=== PATIENT | female | born 1975 | race Caucasian/White ===

== ENCOUNTER 2020-09-16 08:36 | Outpatient (REF) | payer BC, SELFPAY ==
--- NOTE | ~2020-09-16 | MM_ITS ---
EXAMINATION: MM SCREENING DIGITAL BREAST TOMOSYNTHESIS, BILATERAL CLINICAL INFORMATION: Screening. Asymptomatic. The lifetime risk of breast cancer based on the Tyrer-Cuzick Model is 25.9%. Additional annual screening with breast MRI may be of benefit in women with a Score of 20% or greater. COMPARISON: Mammography: 09/11/2019 and studies dating back to 06/01/2016 TECHNIQUE: Digital breast tomosynthesis is performed in both the craniocaudal and mediolateral oblique views along with computer-aided detection (CAD). Synthesized 2D images are generated from the tomosynthesis. FINDINGS: The breasts are heterogeneously dense, which may obscure small masses (ACR BI-RADS breast composition Category c). No suspicious left breast findings. About the deep lateral aspect of the right breast on craniocaudal view within the region of density there is question of some architectural distortion for which spot compression view is recommended. This may represent superimposition of fibroglandular tissue. MM/MM tomosynthesis screening BI IMPRESSION: Question region of architectural distortion lateral right breast for further evaluation as described. ASSESSMENT: BI-RADS 0: Incomplete - Need Additional Imaging Evaluation RECOMMENDATION: 1. Additional views of the right breast. 2. Targeted ultrasound if warranted after review of the additional views. 3. Radiology department staff will contact the patient for additional imaging. This patient's information was entered into a reminder system with a target due date for their next mammogram.
== END 2020-09-16 08:37 | disposition home or self-care (01) ==
LOC: HO.MAMMO 08:36
PROVIDERS: PCP Internal Medicine; Visit Provider Internal Medicine
DX: Z12.31 Encounter for screening mammogram for malignant neoplasm of breast (principal)
CPT/HCPCS: 77063; 77067

== ENCOUNTER 2020-09-20 11:58 | Outpatient (REF) | payer BC, SELFPAY ==
--- NOTE | ~2020-09-20 | US_ITS ---
EXAMINATION: US DIAGNOSTIC ULTRASOUND BREAST, RIGHT CLINICAL INFORMATION: Region of architectural distortion upper outer aspect of the right breast. COMPARISON: None. TECHNIQUE: Ultrasound of the breast is performed with real-time stone scale imaging and color Doppler. FINDINGS: Targeted ultrasound evaluation to the upper outer aspect of the right breast did not demonstrate any abnormal cystic or solid mass. No region of abnormal distal sound shadowing. There is large amount of dense breast parenchyma in this location. Results are provided to the patient at time of visit by the technologist. US/US breast RT limited IMPRESSION: No specific mammographic or ultrasound findings to suggest malignancy of the right breast. ASSESSMENT: BI-RADS 1: Negative RECOMMENDATION: Routine annual mammography screening due in 12 months.
--- NOTE | ~2020-09-20 | MM_ITS ---
EXAMINATION: MM DIAGNOSTIC DIGITAL BREAST TOMOSYNTHESIS, RIGHT US TARGETED BREAST, RIGHT CLINICAL INFORMATION: Asymmetric density upper outer aspect of the right breast. COMPARISON: Mammography: 09/16/2020 and studies dating back to 06/01/2016. TECHNIQUE: Digital breast tomosynthesis is performed. 2D images are generated from the tomosynthesis. The following views are obtained: Spot compression craniocaudal view, 90 degree mediolateral view, and right middle lateral oblique view. Targeted right breast ultrasound. FINDINGS: The breasts are heterogeneously dense, which may obscure small masses (ACR BI-RADS breast composition Category c). Supplementary views compress out the region to have a similar appearance dating back to 03/02/2016 with the appearance of architectural distortion. No new abnormal dominant mass or suspicious grouping of microcalcifications. Targeted ultrasound evaluation to the upper outer aspect of the right breast did not demonstrate any abnormal cystic or solid mass. No region of abnormal distal sound shadowing. There is a large amount of dense breast parenchyma in this location. Results are provided to the patient at time of visit by the technologist. MM/MM tomosynthesis added views R IMPRESSION: No specific mammographic or ultrasound findings to suggest malignancy of the right breast. ASSESSMENT: BI-RADS 1: Negative. RECOMMENDATION: Routine annual mammography screening due in 12 months. This patient's information was entered into a reminder system with a target due date for their next mammogram.
== END 2020-09-20 11:59 | disposition home or self-care (01) ==
LOC: HO.MAMMO 11:58
PROVIDERS: Visit Provider Internal Medicine
DX: R92.8 Other abnormal and inconclusive findings on diagnostic imaging of breast (principal)
CPT/HCPCS: 76642; 77061; 77065

== ENCOUNTER → 2020-12-14 09:23 | Outpatient (BNVA) | payer BC, SELFPAY | PROVIDERS: PCP Internal Medicine; Visit Provider Advanced Practice Midwife ==

== ENCOUNTER 2020-12-27 14:11 | Outpatient (REF) | payer BC, SELFPAY ==
--- NOTE | ~2020-12-27 | US_ITS ---
EXAMINATION: PELVIC ULTRASOUND CLINICAL INFORMATION: Excessive and frequent menstruation with regular cycles COMPARISON: Previous exam July 2019 TECHNIQUE: Transabdominal and transvaginal pelvic ultrasound was performed. Transvaginal exam was performed for better visualization of the uterus and ovaries. FINDINGS: The uterus is anteverted and measures 9.1 x 3.2 x 3.4 cm in dimension. No focal uterine lesion is seen. Endometrial thickness is normal measuring 1 cm. There are nabothian cysts in the cervix. The right ovary measures 2.9 x 1.5 x 2.2 cm. There is a 1.9 x 1.1 x 1.2 cm complex right ovarian cyst with slightly thickened irregular wall. There is a 1.1 x 1.7 x 1.7 cm right paraovarian cyst. This is stable. The left ovary is seen transabdominally only and is normal-appearing. The left ovary measures 2.5 x 1.9 x 1.6 cm. There is no fluid in the pelvis. US/US pelvic and transvaginal IMPRESSION: Normal-appearing uterus. Normal thickness endometrium. New 1.9 x 1.1 x 1.2 cm complex right ovarian cyst with slightly thickened wall. Stable right paraovarian or adnexal cyst measuring 1.1 x 1.7 x 1.7 cm compared to previous exam.
== END 2020-12-27 14:12 | disposition home or self-care (01) ==
LOC: HO.US 14:11
PROVIDERS: Visit Provider Advanced Practice Midwife
DX: N92.0 Excessive and frequent menstruation with regular cycle (principal)
CPT/HCPCS: 76830; 76856

== ENCOUNTER → 2021-01-03 15:41 | Outpatient (BNVA) | payer BC, SELFPAY | PROVIDERS: PCP Internal Medicine; Visit Provider Advanced Practice Midwife ==

== ENCOUNTER 2021-01-23 08:39 | Outpatient (REF) | payer BC, SELFPAY ==
[2021-01-23 10:44] LABS: Hematocrit 41.5 % (37-47); Hemoglobin 13.4 g/dl (12.0-16.0); Mean Corpuscular HGB Conc 32.3 g/dl (31.0-35.0); Mean Corpuscular Hemoglobin 26.3 pg (27.0-33.0); Mean Corpuscular Volume 81.5 fL (80-98); Mean Platelet Volume 10.6 fL (9.4-12.3); Platelet Count 347 X10*3/uL (160-400); Red Blood Count 5.09 X10*6/uL (4.20-5.50); Red Cell Distribution Width 14.1 % (11.0-16.0); White Blood Count 8.4 X10*3/uL (4.8-10.8)
[2021-01-23 11:37] LABS: HCG Quantitative < 2 mIU/mL; TSH reflex Free T4 1.12 uIU/mL (0.32-4.0)
== END 2021-01-23 08:40 | disposition home or self-care (01) ==
LOC: HO.LAB 08:39
PROVIDERS: PCP Internal Medicine; Visit Provider Obstetrics & Gynecology
DX: N92.0 Excessive and frequent menstruation with regular cycle (principal); N83.299 Other ovarian cyst, unspecified side; N88.9 Noninflammatory disorder of cervix uteri, unspecified
CPT/HCPCS: 36415; 57500; 58100; 84443; 84702; 85027; 88305

== ENCOUNTER → 2021-02-06 11:36 | Outpatient (BNVA) | payer BC, SELFPAY | PROVIDERS: PCP Internal Medicine; Visit Provider Obstetrics & Gynecology ==

== ENCOUNTER 2021-02-07 15:46 | Outpatient (REF) | payer BC, SELFPAY ==
[2021-02-08 11:47] LABS: CA-125 17 U/mL (<35)
== END 2021-02-07 15:47 | disposition home or self-care (01) ==
LOC: HO.LAB 15:46
PROVIDERS: Visit Provider Advanced Practice Midwife
DX: N83.299 Other ovarian cyst, unspecified side (principal)
CPT/HCPCS: 36415; 86304

== ENCOUNTER → 2021-05-03 08:53 | Outpatient (BNVA) | payer BC, SELFPAY | PROVIDERS: Visit Provider Obstetrics & Gynecology ==

== ENCOUNTER 2021-09-22 09:37 | Outpatient (REF) | payer BC, SELFPAY ==
--- NOTE | ~2021-09-22 | MM_ITS ---
EXAMINATION: MM SCREENING DIGITAL BREAST TOMOSYNTHESIS, BILATERAL CLINICAL INFORMATION: Screening. Asymptomatic. Family history breast cancer, mother. The lifetime risk of breast cancer based on the Tyrer-Cuzick Model is 23%. COMPARISON: Mammography: 09/20/2020, 09/11/2019, 07/04/2018, 06/21/2017 TECHNIQUE: Digital breast tomosynthesis is performed in both the craniocaudal and mediolateral oblique views along with computer-aided detection (CAD). Synthesized 2D images are generated from the tomosynthesis. FINDINGS: There are scattered areas of fibroglandular density (ACR BI-RADS breast composition Category b). Parenchymal pattern is similar to prior exams. Scattered minor asymmetries are stable. There is no developing density or interval mass or architectural abnormality. No abnormal calcifications. There is a small dermal lesion again seen overlying the posterior medial right breast. The axilla are unremarkable. MM/MM tomosynthesis screening BI IMPRESSION: No mammographic evidence of malignancy. ASSESSMENT: BI-RADS 2: Benign RECOMMENDATION: Routine annual mammography screening. This patient's information was entered into a reminder system with a target due date for their next mammogram.
== END 2021-09-22 09:38 | disposition home or self-care (01) ==
LOC: HO.MAMMO 09:37
PROVIDERS: PCP Internal Medicine; Visit Provider Internal Medicine
DX: Z12.31 Encounter for screening mammogram for malignant neoplasm of breast (principal)
CPT/HCPCS: 77063; 77067

== ENCOUNTER 2022-09-28 10:03 | Outpatient (REF) | payer BC, SELFPAY ==
--- NOTE | ~2022-09-28 | MM_ITS ---
EXAMINATION: MM SCREENING DIGITAL BREAST TOMOSYNTHESIS, BILATERAL CLINICAL INFORMATION: Screening. Asymptomatic. Family history breast cancer, mother. The lifetime risk of breast cancer based on the Tyrer-Cuzick Model is 23%. COMPARISON: Multiple prior exams, most recent 09/22/2021. TECHNIQUE: Digital breast tomosynthesis is performed in both the craniocaudal and mediolateral oblique views along with computer-aided detection (CAD). Synthesized 2D images are generated from the tomosynthesis. Additional left MLO view is provided. FINDINGS: There are scattered areas of fibroglandular density (ACR BI-RADS breast composition Category b). Breast tissue composition borders on heterogeneously dense in the upper outer quadrants. There are no abnormal calcifications. The bilateral axilla and skin contours are unremarkable. Left breast parenchymal pattern is similar to prior studies and there is no significant mass or architectural abnormality or developing density. Right CC view has rounded parenchymal asymmetry mid central outer breast, suspect incompletely compressed glandular tissue and/or summation artifact. Patient will be recalled for additional imaging. MM/MM tomosynthesis screening BI IMPRESSION: Right: -Parenchymal asymmetry mid central outer breast on CC view, possibly incompletely compressed glandular tissue and/or summation artifact. Left: -No mammographic evidence of malignancy. ASSESSMENT: BI-RADS 0: Incomplete - Need Additional Imaging Evaluation RECOMMENDATION: 1. Additional views right breast (rolled CC x2, spot MLO upper). 2. Targeted ultrasound if warranted after review of the additional views. 3. Radiology department staff will contact the patient for additional imaging. This patient's information was entered into a reminder system with a target due date for their next mammogram.
== END 2022-09-28 10:04 | disposition home or self-care (01) ==
LOC: HO.MAMMO 10:03
PROVIDERS: PCP Internal Medicine; Visit Provider Internal Medicine
DX: Z12.31 Encounter for screening mammogram for malignant neoplasm of breast (principal)
CPT/HCPCS: 77063; 77067

== ENCOUNTER 2022-10-10 08:54 | Outpatient (REF) | payer BC, SELFPAY ==
--- NOTE | ~2022-10-10 | MM_ITS ---
EXAMINATION: MM DIAGNOSTIC DIGITAL BREAST TOMOSYNTHESIS, right breast CLINICAL INFORMATION: Right breast asymmetric density upper outer aspect. COMPARISON: Mammography: 09/28/2022 and studies dating back to 06/01/2016. TECHNIQUE: Digital breast tomosynthesis is performed. 2D images are generated from the tomosynthesis. The following views are obtained: Rolled craniocaudal views and spot compression mediolateral oblique view. FINDINGS: The breasts are heterogeneously dense, which may obscure small masses (ACR BI-RADS breast composition Category c). Additional views show no significant mass, architectural abnormality, or abnormal calcifications. The appearance is stable compared to prior studies. Results are discussed with the patient at time of visit. MM/MM tomosynthesis added views R IMPRESSION: No mammographic evidence of malignancy. ASSESSMENT: BI-RADS 1: Negative. RECOMMENDATION: Routine annual mammography screening. This patient's information was entered into a reminder system with a target due date for their next mammogram.
== END 2022-10-10 08:55 | disposition home or self-care (01) ==
LOC: HO.MAMMO 08:54
PROVIDERS: PCP Internal Medicine; Visit Provider Internal Medicine
DX: R92.8 Other abnormal and inconclusive findings on diagnostic imaging of breast (principal)
CPT/HCPCS: 77061; 77065

== ENCOUNTER 2023-02-27 07:58 | Outpatient (AMB) | payer BC, SELFPAY ==
--- NOTE | 2023-02-27 08:03 | MHC.OFFVIS ---
Intake Vital Signs 02/27/23 08:04 Height 5 ft 7 in Weight 188 lb BMI 29.4 Intake Visit Reasons: Annual Intake Note: no concerns Nuclear Medical Technologist Required: No Information Interpreted: non-clinical & clinical Audio Specialist: Audio Specialist Present (Tali INGRAM) Accompanied by: Self / Same As Patient Allergies No Known Allergies Allergy (Verified 02/27/23 08:07) Is last menstrual period known: Yes Last menstrual period: 02/05/23 HPI HPI Comments History of Present Illness Details Presenting for annual exam. No complaints. 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 Sexual orientation: Straight/Heterosexual Gender identity: Female Female Reproductive History Menstrual Age of Menarche: 14 Date of last menstrual period: 02/05/23 Total pregnancies: 2 Full term: 2 Number of Living Children: 2 Date of last pap smear: 07/26/19 Date of Mammogram: 10/10/22 Review of Systems Const All systems reviewed & are unremarkable except as noted in HPI and below Card Reports as per HPI Resp Reports as per HPI GI Reports as per HPI and Reports no additional complaints Reports as per HPI Physical Exam Vital Signs: BMI result Body Mass Index 29.4 Const General: cooperative, healthy appearing and comfortable Chest Chest palpation & inspection: normal inspection of the chest and normal palpation of entire chest wall Breast/axilla inspection: normal inspection of the breasts and normal inspection of the axillae Breast/axilla palpation: normal palpation of the breasts, normal palpation of the axillae and no axillary lymphadenopathy Resp Effort & Inspection: normal respiratory effort Auscultation: clear to auscultation bilaterally Percussion: percussion normal Cardio Palpation: normal PMI Rate: regular rate Rhythm: regular rhythm Heart sounds: no murmurs and no rubs Peripheral pulses: Peripheral pulses 2+ throughout GI Inspection: Yes normal to inspection Palpation (GI): Soft to palpation, nontender, no guarding, not rigid and No hepatosplenomegaly present Percussion: Yes normal to percussion Auscultation: normal bowel sounds Rectal Exam - Female: deferred General: Yes bladder normal to palpation External Female Exam: No lesion Speculum Exam - Vagina: normal appearance of the vagina, normal palpation, normal vaginal discharge and not erythematous Speculum Exam - Cervix: normal appearance of the cervix and normal palpation Bimanual exam- vagina & uterus: normal bimanual exam, normal palpation, uterine size normal, bladder normal to palpation, consistency normal and normal palpation Bimanual Exam- Adnexa, other: normal adnexae, no masses and no tenderness Assessment & Plan Assessment & Plan (1) Well woman exam: Code(s): Z01.419 - Encounter for gynecological examination (general) (routine) without abnormal findings Plan: Co testing not indicated this year. Counseled the patient about the recommended dietary allowance of 1200 mg of Calcium & 600 IU of vitamin D. Mammogram ordered , the patient is up-to-date with screening colonoscopy . The patient was instructed to perform monthly self-breast exams and schedule annual exam in a year; all questions answered and the patient verbalized understanding. Coding Level of Care Code Est Pt Prev Care 40-64y(72146) Diagnoses Well woman exam Z01.419
[2023-02-27 08:04] VITALS: BMI 29.4
== END 2023-02-27 08:41 | disposition home or self-care (01) ==
PROVIDERS: PCP Internal Medicine; Visit Provider Obstetrics & Gynecology
DX: Z01.419 Encounter for gynecological examination (general) (routine) without abnormal findings (principal)
CPT/HCPCS: 99396

== ENCOUNTER → 2023-02-27 07:58 | Outpatient (BNVA) | payer BC, SELFPAY | PROVIDERS: PCP Internal Medicine; Visit Provider Obstetrics & Gynecology ==

== ENCOUNTER 2023-10-04 10:04 | Outpatient (REF) | payer BC, SELFPAY | END 2023-10-04 10:05 | disposition home or self-care (01) | LOC: HO.MAMMO 10:04 | PROVIDERS: PCP Internal Medicine; Visit Provider Internal Medicine | DX: Z12.31 Encounter for screening mammogram for malignant neoplasm of breast (principal) | CPT/HCPCS: 77063; 77067 ==

== ENCOUNTER → 2023-10-04 10:15 | Outpatient (BNV) | payer BC, SELFPAY | PROVIDERS: PCP Internal Medicine; Visit Provider Radiology Diagnostic Radiology | DX: Z12.31 Encounter for screening mammogram for malignant neoplasm of breast (principal) | CPT/HCPCS: 77063; 77067 ==

== ENCOUNTER 2024-03-02 07:58 | Outpatient (AMB) | payer BC, SELFPAY ==
--- NOTE | 2024-03-02 07:58 | A.OFFVIS_ITS ---
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 No complaints. 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 Sexual orientation: Straight/Heterosexual Gender identity: Female Female Reproductive History Menstrual Age of Menarche: 14 Date of last menstrual period: 02/11/24 Total pregnancies: 2 Full term: 2 Number of Living Children: 2 Date of last pap smear: 07/26/19 Date of Mammogram: 10/04/23 Review of Systems Const All systems reviewed & are unremarkable except as noted in HPI and below Card Reports as per HPI Resp Reports as per HPI GI Reports as per HPI and Reports no additional complaints Reports as per HPI Physical Exam Vital Signs: Last Vital Signs BP 118/76 03/02/24 08:01 BMI result Body Mass Index 26.6 Const General: cooperative, healthy appearing and comfortable Chest Chest palpation & inspection: normal inspection of the chest and normal palpation of entire chest wall Breast/axilla inspection: normal inspection of the breasts and normal inspection of the axillae Breast/axilla palpation: normal palpation of the breasts, normal palpation of the axillae and no axillary lymphadenopathy Resp Effort & Inspection: normal respiratory effort Auscultation: clear to auscultation bilaterally Percussion: percussion normal Cardio Palpation: normal PMI Rate: regular rate Rhythm: regular rhythm Heart sounds: no murmurs and no rubs Peripheral pulses: Peripheral pulses 2+ throughout GI Inspection: Yes normal to inspection Palpation (GI): Soft to palpation, nontender, no guarding, not rigid and No hepatosplenomegaly present Percussion: Yes normal to percussion Auscultation: normal bowel sounds Rectal Exam - Female: deferred General: Yes bladder normal to palpation External Female Exam: No lesion Speculum Exam - Vagina: normal appearance of the vagina, normal palpation, normal vaginal discharge and not erythematous Speculum Exam - Cervix: normal appearance of the cervix and normal palpation Bimanual exam- vagina & uterus: normal bimanual exam, normal palpation, uterine size normal, bladder normal to palpation, consistency normal and normal palpation Bimanual Exam- Adnexa, other: normal adnexae, no masses and no tenderness Assessment & Plan Assessment & Plan (1) Well woman exam: Code(s): Z01.419 - Encounter for gynecological examination (general) (routine) without abnormal findings Category: Medical Plan: Co testing not indicated this year. Counseled the patient about the recommended dietary allowance of 1200 mg of Calcium & 600 IU of vitamin D. Instructions given the patient to schedule next screening Mammogram in 10/15. The patient was instructed to perform monthly self-breast exams and schedule annual exam in a year. All questions answered and the patient verbalized understanding. Coding Level of Care Code Est Pt Prev Care 40-64y(64556) Diagnoses Well woman exam Z01.419
[2024-03-02 08:01] VITALS: BP 118/76; BMI 26.6
== END 2024-03-02 08:21 | disposition home or self-care (01) ==
LOC: HO.HWS 07:58
PROVIDERS: PCP Internal Medicine; Visit Provider Obstetrics & Gynecology
DX: Z01.419 Encounter for gynecological examination (general) (routine) without abnormal findings (principal)
CPT/HCPCS: 99396

== ENCOUNTER → 2024-03-02 07:58 | Outpatient (BNVA) | payer BC, SELFPAY | PROVIDERS: PCP Internal Medicine; Visit Provider Obstetrics & Gynecology ==

== ENCOUNTER 2024-10-19 08:15 | Outpatient (REF) | payer BC, SELFPAY | END 2024-10-19 08:16 | disposition home or self-care (01) | LOC: HO.MAMMO 08:15 | PROVIDERS: Visit Provider Internal Medicine | DX: Z12.31 Encounter for screening mammogram for malignant neoplasm of breast (principal) | CPT/HCPCS: 77063; 77067 ==

== ENCOUNTER → 2024-10-19 08:30 | Outpatient (BNV) | payer BC, SELFPAY | PROVIDERS: Visit Provider Internal Medicine | DX: Z12.31 Encounter for screening mammogram for malignant neoplasm of breast (principal) | CPT/HCPCS: 77063; 77067 ==

== ENCOUNTER 2025-03-07 08:19 | Outpatient (REF) | payer BC, SELFPAY | END 2025-03-07 08:20 | disposition home or self-care (01) | LOC: HO.LNP 08:19 | PROVIDERS: Visit Provider Obstetrics & Gynecology | DX: Z01.419 Encounter for gynecological examination (general) (routine) without abnormal findings (principal); Z11.51 Encounter for screening for human papillomavirus (HPV); Z91.89 Other specified personal risk factors, not elsewhere classified; Z80.3 Family history of malignant neoplasm of breast | CPT/HCPCS: 87626; 88175 ==

== ENCOUNTER 2025-03-07 08:19 | Outpatient (AMB) | payer BC, SELFPAY ==
--- NOTE | 2025-03-07 08:28 | A.OFFVIS_ITS ---
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 No complaints. 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 Sexual orientation: Straight/Heterosexual Gender identity: Female Female Reproductive History Menstrual Age of Menarche: 14 Date of last menstrual period: 02/18/25 Date of Mammogram: 10/19/24 Review of Systems Const All systems reviewed & are unremarkable except as noted in HPI and below Card Reports as per HPI Resp Reports as per HPI GI Reports as per HPI and Reports no additional complaints Reports as per HPI Physical Exam Vital Signs: Last Vital Signs BP 122/74 03/07/25 08:29 BMI result Body Mass Index 27.7 Const General: cooperative, healthy appearing and comfortable Chest Chest palpation & inspection: normal inspection of the chest and normal palpation of entire chest wall Breast/axilla inspection: normal inspection of the breasts and normal inspection of the axillae Breast/axilla palpation: normal palpation of the breasts, normal palpation of the axillae and no axillary lymphadenopathy Resp Effort & Inspection: normal respiratory effort Auscultation: clear to auscultation bilaterally Percussion: percussion normal Cardio Palpation: normal PMI Rate: regular rate Rhythm: regular rhythm Heart sounds: no murmurs and no rubs Peripheral pulses: Peripheral pulses 2+ throughout GI Inspection: Yes normal to inspection Palpation (GI): Soft to palpation, nontender, no guarding, not rigid and No hepatosplenomegaly present Percussion: Yes normal to percussion Auscultation: normal bowel sounds Rectal Exam - Female: deferred General: Yes bladder normal to palpation External Female Exam: No lesion Speculum Exam - Vagina: normal appearance of the vagina, normal palpation, normal vaginal discharge and not erythematous Speculum Exam - Cervix: normal appearance of the cervix and normal palpation Bimanual exam- vagina & uterus: normal bimanual exam, normal palpation, uterine size normal, bladder normal to palpation, consistency normal and normal palpation Bimanual Exam- Adnexa, other: normal adnexae, no masses and no tenderness Assessment & Plan Assessment & Plan (1) Well woman exam: Code(s): Z01.419 - Encounter for gynecological examination (general) (routine) without abnormal findings Category: Medical Plan: Co testing done. Counseled the patient about the recommended dietary allowance of 1200 mg of Calcium & 600 IU of vitamin D. Instructions given to patient to schedule next screening Mammogram in 10/16. The patient was instructed to perform monthly self-breast exams and schedule annual exam in a year. All questions answered and the patient verbalized understanding. (2) At high risk for breast cancer: Code(s): Z91.89 - Other specified personal risk factors, not elsewhere classified Category: Medical Plan: Discussed with the patient her increased risk for Breast ca. Recommended Intensification of breast Cancer screening with annual MRI breast in addition to annual mammogram and MRI alternating every 6 months. Mammogram done recently , Breast MRI ordered Will refer to Dr Guzman for possible Genetic Ca counseling and possible testing, in addition to counseling regarding Chemoprevention strategies All questions answered, the patient verbalized understanding and agreed with the plan Orders: Orders MR breast BI wo/w con Today Z80.3 - Family history of malignant neoplasm of breast HPV High risk Today Z01.419 - Encounter for gynecological examination (general) (routine) without abnormal findings Pap Smear Today Z01.419 - Encounter for gynecological examination (general) (routine) without abnormal findings Referrals General Surgery Referral Z91.89 - Other specified personal risk factors, not elsewhere classified Coding Level of Care Code Est Pt Prev Care 40-64y(35860) Diagnoses Well woman exam Z01.419 At high risk for breast cancer Z91.89
[2025-03-07 08:29] VITALS: BP 122/74; BMI 27.7
--- OUTSIDE RECORDS SUMMARY | 2025-03-07 09:17 | XMS_ITS | Clinical Summary ---
Author Organization [facility] Address [address] [place] [phone] Phone Care Team Providers Care Dairy Nutritionist Name Role Phone Rosario Story MD Primary Care Provide r Allergies No known active allergies Medications famotidine (PEPCID) 20 MG tablet Take 20 mg by mouth. 3 Active rosuvastatin (CRESTOR) 5 MG tablet rosuvastatin 5 mg tablet TAKE 1 TABLET BY MOUTH DAILY 2 Active Active Problems No known active problems Social History Tobacco Use Types Packs/Day Years Used Date Smoking Tobacco: Never Smokeless Tobacco: Never Tobacco Cessation:Counseling Given: Not Answered Education Answer Date Recorded Are you interested in more education? Not on clayton e 10/24/2022 Are you concerned about learning? Not on file 10/24/2022 No 10/24/2022 No 10/24/2022 Digital Access Answer Date Recorded No 11/19/2022 No 11/19/2022 Reliable internet access at home? Not on file 11/19/2022 Device with a working camera? Not on file Comments Unknown Sex and Gender Information Value Date Recorded Sex Assigned at Female 06/26/2023 3:03 PM EST Legal Sex Female 12:54 PM EDT Gender Identity Female 06/26/2023 3:03 PM EST Sexual Orientation Straight 06/26/2023 3: 03 PM EST Last Filed Vital Signs Vital Sign Reading Time Taken Comments Blood Pressure 147/101 06/24/2023 9:13 AM EST Pulse 82 06/24/2023 9:13 AM EST Temperature 36.6 C (97.9 F) 06/24/2023 9:13 AM EST Respiratory Rate 16 06/24/2023 9:13 AM EST Oxygen Saturation 100% 06/24/2023 9:13 AM EST Inhaled Oxygen Concentration - - Weight 86.2 kg (190 lb) 10/24/2022 1:20 PM EDT p er pt Height - - Body Mass Index - - Plan of Treatment Health Maintenance Due Date Last Done Comments LIPID PANEL 1975 DEPRESSION SCREENING 1987 HEPATITIS C SCREENING 09/25/1993 HIV ONE-TIME SCREENING (18-65 YEARS) 09/25/1993 PAP SMEAR 09/25/1996 MAMMOGRAM 2015 Adult Td,Tdap Booster 04/15/2019 04/15/2009 COLOGUARD 09/25/2020 COLONOSCOPY 09/25/2020 COLORECTAL CANCER SCREENING 09/25/2020 FIT TEST 09/25/2020 FOBT 09/25/2020 SIGMOIDOSCOPY 09/25/2020 VIRTUAL COLONOSCOPY 09/25/2020 INFLUENZA VACCINE (#1) 2025 3, 05/03/2022, 05/11/2021, Additional history exists COVID-19 VACCINE (2024- season) 2025 06/18/2021, 2020, 09/05/2020 PNEUMOCOCCAL VACCINES (0-49 years) Aged Out 02/24/2019, 12/09/2018 No longer eligibl e based on patient's age to complete this topic SMOKING STATUS SCREENING (Once After 26 Yrs) Completed 06/24/2023 HEPATITIS A VACCINES Aged Out No long er eligible based on patient's age to complete this topic HIB VACCINES Aged Out No longer eligi ble based on patient's age to complete this topic MENINGOCOCCAL VACCINES (ACWY) Aged Out No longer eligible based on patient's age to complete this topic MENINGOCOCCAL VACCINES (B) Aged Out N o longer eligible based on patient's age to complete this topic Medical Devices Not on file Insurance [facility] [address] [place] [address] [place] [address] [place] [address] [place] [address] [place] [address] Care Teams Dairy Nutritionist Relationship Specialty Start Date End Date Rosario Story MD [address] [place] [phone] PCP - General Internal Medicine 10/24/22 Additional Source Comments The information contained in this document represents components of the legal health record. It is not the complete legal health record.[facility]
== END 2025-03-07 09:21 | disposition home or self-care (01) ==
LOC: HO.HWS 08:19
PROVIDERS: Visit Provider Obstetrics & Gynecology
DX: Z01.419 Encounter for gynecological examination (general) (routine) without abnormal findings (principal); Z91.89 Other specified personal risk factors, not elsewhere classified
CPT/HCPCS: 99396; 99459

== ENCOUNTER 2025-04-12 13:20 | Outpatient (AMB) | payer BC, SELFPAY ==
--- NOTE | 2025-04-12 13:24 | MHC.OFFVIS ---
Vital Signs 04/12/25 13:32 Height 5 ft 7 in Weight 183 lb BMI 28.7 BP 141/86 H Blood Pressure Location Lt brachial Position Sitting Pulse 97 Intake Visit Reasons: high risk breast CA Intake Note: Patient is seen in office for high risk breast cancer. Pt c/o: denies any concerns regarding the breast, mom was Dx with breast cancer at age of 64 mm:10/19/24 Sail Finisher Machine Required: No Manager Environmental Services: Manager Environmental Services Present Accompanied by: Self / Same As Patient Allergies No Known Allergies Allergy (Verified 04/12/25 13:25) Medication List - Last Reconciled 04/12/25 by Christopher Guzman MD amlodipine 5 mg PO DAILY rosuvastatin 5 mg PO DAILY HPI Comments Details: 49-year-old female patient presenting for high-risk breast examination. 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 Her family history is significant for her mother developing breast cancer at the age of 64. The patient denies any previous history of breast problems or breast surgery. She denies any symptoms in the breast including palpable lumps, skin change, nipple discharge, or enlarged lymph nodes. Menarche was at 14. She is 2 para 2 with 2 sons age 9 in 13. She was 35 years old at the of her 1st child. She was previously on control pills years ago. Her most recent mammogram dated 10/19/2024 revealed no mammographic evidence of malignancy. Breast density score of C, (BI-RADS 1). She denies Ashkenazi Denominational heritage. She reports her father in a motor vehicle accident in 2015. Her from liver failure after receiving 2 liver transplants. Her [facility] remaining lifetime risk of breast cancer is 27.3% placing her at high risk for breast cancer. 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 Sexual orientation: Straight/Heterosexual Gender identity: Female Female Reproductive History Menstrual Age of Menarche: 14 Date of last menstrual period: 04/12/25 Total pregnancies: 2 Number of Living Children: 2 Review of Systems Const All systems reviewed & are unremarkable except as noted in HPI and below Physical Exam Vital Signs: Last Vital Signs Pulse 97 04/12/25 13:32 BP 141/86 H 04/12/25 13:32 BMI result Body Mass Index 28.7 Const General: cooperative and no acute distress Nutritional Appearance: well nourished Orientation/consciousness: patient oriented x3 Limitations: no limitations HEENT Head: Yes normocephalic and Yes atraumatic Ears: hearing grossly normal bilaterally Chest Other: Left breast: No skin change, no nipple retraction, no nipple discharge, no palpable mass, no enlarged lymph nodes. Right breast: No skin change, no nipple retraction, no nipple discharge, no palpable mass, no enlarged lymph nodes Resp Effort & Inspection: normal respiratory effort, no audible wheezes, no cough and no respiratory distress Cardio Jugular venous distension: no JVD GI Inspection: Yes normal to inspection Skin Other: Warm, dry, no rash Neuro General: patient oriented x3 Extrem General: Yes no clubbing, cyanosis or edema Assessment & Plan Assessment & Plan (1) At high risk for breast cancer: Code(s): Z91.89 - Other specified personal risk factors, not elsewhere classified Category: Medical (2) Family history of breast cancer: Code(s): Z80.3 - Family history of malignant neoplasm of breast Category: Medical Plan 49-year-old female patient determined to be at high risk for breast cancer due to maternal history of breast cancer. She has no previous history of breast problems or breast surgery. Examination today revealed no suspicious findings in either breast. Her most recent mammogram of 10/19/2024 revealed no mammographic evidence of malignancy (BI-RADS 1). JamariManuel remaining lifetime risk of breast cancer is 27.3% placing her at high risk for breast cancer. We discussed genetic testing and reviewed the relative risks and benefits. She wishes to proceed with this testing today. We also discussed additional screening including yearly breast MRI alternating with yearly mammograms every 6 months, as well as twice yearly clinical breast examinations. She expressed understanding and agrees with the plan. She will return in 6 weeks to review the genetic testing results. Orders: Orders MR breast BI wo/w con Today Z80.3 - Family history of malignant neoplasm of breast, Z91.89 - Other specified personal risk factors, not elsewhere classified Coding Level of Care Code New Pt Level 4 (69180) Diagnoses At high risk for breast cancer Z91.89 Family history of breast cancer Z80.3
[2025-04-12 13:32] VITALS: BP 141/86; PULSE 97; BMI 28.7
== END 2025-04-12 14:33 | disposition home or self-care (01) ==
LOC: HO.HGS 13:21
PROVIDERS: PCP Internal Medicine; Visit Provider Surgery
DX: Z91.89 Other specified personal risk factors, not elsewhere classified (principal); Z80.3 Family history of malignant neoplasm of breast
CPT/HCPCS: 99204

== ENCOUNTER 2025-05-30 14:59 | Outpatient (REF) | payer BC, SELFPAY ==
--- NOTE | ~2025-05-30 | MR_ITS ---
EXAMINATION: MR BREAST WITHOUT AND WITH CONTRAST, BILATERAL CLINICAL INFORMATION: High risk strong family history of breast cancer including patient's sister. COMPARISON: Comparison is made with relevant prior imaging. TECHNIQUE: MR imaging of the breast was performed using T1, T2 and fat saturated techniques. Dynamic multiphase imaging was also performed after the administration of intravenous gadolinium contrast agent. Computer generated 3D reconstruction and enhancement kinetic analysis was ulitized by the radiologist in the interpretation of this examination. FINDINGS: Breast composition: Heterogeneous fibroglandular breast tissue Background parenchymal enhancement: Moderate LEFT BREAST: No suspicious enhancing masses or areas of non mass enhancement. No axillary or internal mammary adenopathy. RIGHT BREAST: No suspicious enhancing masses or areas of non mass enhancement. No axillary or internal mammary adenopathy. Limited views of the chest and abdomen are unremarkable. MR/MR breast BI wo/w con IMPRESSION: No MR specific evidence of malignancy. ASSESSMENT: LEFT BREAST: BI-RADS 1-Negative RIGHT BREAST: BI-RADS 1-Negative RECOMMENDATIONS: Yearly screening mammography Yearly Breast MRI screening surveillance. Electronically signed by: Katina Casey DO 05/31/2025 09:07 PM ROSITA
--- OUTSIDE RECORDS SUMMARY | 2025-05-31 00:24 | XMS_ITS | Clinical Summary ---
Author Organization [facility] Address [address] [place] [phone] Phone Care Team Providers Care Java Sybase Developer Name Role Phone Rosario Story MD Primary [...] topic Medical Devices Not on file Insurance [facility] [address] [place] [address] [place] [address] [place] [address] [place] [address] [place] [address] Care Teams Java Sybase Developer Relationship Specialty Start Date End Date Rosario Story MD [address] [place] [phone] PCP - General Internal Medicine 10/24/22 Additional Source Comments The information contained in this document represents components of the legal health record. It is not the complete legal health record.[facility]
== END 2025-05-30 15:00 | disposition home or self-care (01) ==
LOC: HO.MRI 14:59
PROVIDERS: Visit Provider Obstetrics & Gynecology
DX: Z80.3 Family history of malignant neoplasm of breast (principal)
CPT/HCPCS: 77049; A9585

== ENCOUNTER → 2025-05-30 15:17 | Outpatient (BNV) | payer BC, SELFPAY | PROVIDERS: Visit Provider Internal Medicine | DX: Z80.3 Family history of malignant neoplasm of breast (principal) | CPT/HCPCS: 77049 ==